=== PATIENT | male | born 1965 | race Caucasian/White ===

== ENCOUNTER 2016-11-26 10:42 | Day surgery (SDC) | payer BC ==
[~2016-11-26 10:42] MED LIST: Lactated Ringers 1,000 ML IV SCH
[2016-11-26] MEDS ORDERED: Propofol 200 MG/20 ML SDV ONE (12:06)
[2016-11-26] MEDS ORDERED: fentaNYL 100 MCG/2 ML SDV ONE (12:06)
[2016-11-26] MEDS ORDERED: Ondansetron 4 MG/2 ML SDV IVPUSH ONE (13:24)
[2016-11-26 14:02] VITALS: BP 124/85
--- NOTE | 2016-11-27 09:55 | OR ---
PREOPERATIVE DIAGNOSIS: Gastroesophageal reflux disease. POSTOPERATIVE DIAGNOSIS: Gastroesophageal reflux disease. PROCEDURE PERFORMED: EGD with antral biopsies. INDICATION: The patient is here with a long history of gastroesophageal reflux disease. Presents for EGD at this time. DESCRIPTION OF PROCEDURE: This was done in the endoscopy suite. Sedation was given per Anesthesia. The scope was introduced into the pharynx, slowly advanced through the pharynx into the esophagus across the GE junction into the stomach across the pylorus into the 1st and 2nd portion of the duodenum. The 1st and 2nd portion of the duodenum was normal. Scope was slowly withdrawn, two antral biopsies for H. pylori. The scope was retroflexed. The patient had a moderate- sized hiatal hernia present. The scope was then slowly withdrawn. Minimal to no esophagitis present. The scope was withdrawn the remainder of the way. FINAL DIAGNOSIS: Moderate-size hiatal hernia. His esophagitis appears to have resolved with the Protonix that he started on 3 weeks ago. BKD: 11/26/2016 12:35:08 MODL: 11/26/2016 19:36:04 /[id number]
== END 2016-11-26 14:34 | disposition home or self-care (01) ==
LOC: VM.SDS 10:42
PROVIDERS: ATTEND Surgery
DX: K29.50 Unspecified chronic gastritis without bleeding (principal); K44.9 Diaphragmatic hernia without obstruction or gangrene; E66.9 Obesity, unspecified; K21.9 Gastro-esophageal reflux disease without esophagitis; Z88.8 Allergy status to other drugs, medicaments and biological substances; Z98.890 Other specified postprocedural states; Z79.899 Other long term (current) drug therapy
CPT/HCPCS: 43239; J2405; J2704; J3010; J7120